=== PATIENT | male | born 1995 | race Caucasian/White ===

== ENCOUNTER 2025-06-23 08:57 | Emergency (ER) | payer OTHER ==
[~2025-06-23] VITALS: Ht 180.3 cm; Wt 94.3 kg
[2025-06-23] MEDS: NS (Normal Saline) 0.9% 1,000 ML IV ONE (12:11)
[2025-06-23 12:22] LABS: BASO # 0.0 10^3/uL (0.0-0.2); BASO % 0.2 % (0.0-1.0); EOS # 0.0 10^3/uL (0.0-0.5); EOS % 0.2 % (0.0-3.0); LYMPH # 0.9 10^3/uL (1.5-5.0); LYMPH % 10.1 % (24.0-44.0); MONO # 0.5 10^3/uL (0.0-0.8); MONO % 5.3 % (2.0-8.0); NEUTROPHILS # 7.2 10^3/uL (1.5-8.5); NEUTROPHILS % 83.3 % (36.0-66.0); PLATELET COUNT, AUTOMATED 383 10^3/uL (150-450)
[2025-06-23 12:48] LABS: ALT/SGPT 54.0 U/L (7.0-40); AST/SGOT 42.0 U/L (<34); CALCIUM LEVEL 9.1 MG/DL (8.5-10.1); CARBON DIOXIDE LEVEL 27.0 MMOL/L (20-31); CHLORIDE LEVEL 102.0 MMOL/L (98-107); CREATININE FOR GFR 1.23 MG/DL (0.70-1.30); GLOMERULAR FILTRATION RATE 82.5 (>60); POTASSIUM SERUM 4.7 MMOL/L (3.5-5.1); SODIUM LEVEL 140.0 MMOL/L (136-145)
[2025-06-23 12:52] LABS: CK-MB VALUE MASS 2.1 NG/ML (<3.6)
[2025-06-23 12:53] LABS: CPK CREATINE PHOSPHOKINASE 348.0 U/L (46-171); MB/CK RELATIVE INDEX 0.6 (< OR =4)
[2025-06-23] MEDS ORDERED: HOME MED LIST COMPLETE! XX SCH (14:45)
[2025-06-23] MEDS ORDERED: MECLIZINE 25 MG TABLET PO ONE (15:05)
[2025-06-23 15:14] LABS: KETONE, URINE AUTO RFX NEGATIVE (NEGATIVE); LEUKOCYTE ESTERASE UR AUTO RFX NEGATIVE (NEGATIVE); NITRITE, URINE AUTO RFX NEGATIVE (NEGATIVE); RBC, URINE AUTO RFX 0 /HPF (0-3); SQUAM EPITHELIAL CELL UR AURFX 0 /HPF (0-6); URIC ACID CRYSTALS RFX LARGE; WBC, URINE AUTO RFX 0 /HPF (0-3)
[2025-06-23] MEDS ORDERED: ONDA-282 PO (15:28)
[2025-06-23] MEDS: ONDANSETRON 4MG 2ML VIAL IV ONE (15:48)
[2025-06-23 15:54] VITALS: BP 120/61; TEMP 97.6; O2SAT 98
== END 2025-06-23 16:11 | disposition home or self-care (01) ==
LOC: EDBD 08:57 → M ED 08:57
DX: R11.10 Vomiting, unspecified (principal); R19.7 Diarrhea, unspecified; R74.01 Elevation of levels of liver transaminase levels; F17.220 Nicotine dependence, chewing tobacco, uncomplicated
CPT/HCPCS: 71045; 80048; 80076; 81001; 82550; 82553; 83605; 84484; 85025; 87040; 87154; 87486; 87581; 87633; 87798; 93005; 96361; 96374; 99284; J2405